=== PATIENT | female | born 1995 | race Caucasian/White ===

== ENCOUNTER 2020-05-02 13:48 | Outpatient (REF) | payer SELFPAY ==
--- NOTE | 2020-05-02 13:00 | PAPFT_PTH ---
PATIENT: TIN GODFREY LOC: [facility] U#:[id number] AGE/SX: 25/F ROOM: RE05/02/[address]: COLLINS Saldana : 1995 BED: DIS: 05/02/2020 SPEC #: [id number] RECD: 05/02/20 17:55 STATUS: TERRELL REKarson #: [id number] KRISTAL: 05/02/20 13:[address]: Carmel Perla DEPT: [facility] Cytology RECD BY: Carline Kincaid ENTERED: 05/02/20 17:55 SP TYPE: PAPFT OTHR DR: Yadiel Pastrana MD Tissues: 1 - CX/ENDOCX FOR PAP SMEARS Procedures: PAP THIN PREP/[facility] Screening Comments: [id number] (MICHIE)
[2020-05-08 12:21] LABS: Chlamydia Result Negative (Negative); GC Result Negative (Negative)
== END 2020-05-02 14:08 ==
LOC: LBN 13:48
PROVIDERS: PCP Pediatrics; Visit Provider Nurse Practitioner Family
DX: Z11.3 Encounter for screening for infections with a predominantly sexual mode of transmission (principal); Z12.4 Encounter for screening for malignant neoplasm of cervix; R87.612 Low grade squamous intraepithelial lesion on cytologic smear of cervix (LGSIL)
CPT/HCPCS: 87491; 87591; 88142

== ENCOUNTER 2023-05-31 13:29 | Outpatient (REF) | payer SELFPAY ==
--- NOTE | 2023-05-31 13:45 | PAPFT_PTH ---
PATIENT: TIN GOFDREY LOC: [facility] U#:[id number] AGE/SX: 28/F ROOM: RE05/31/[address]: Olivia Sevilla MD : 1995 BED: DIS: 05/31/2023 SPEC #: [id number] RECD: 05/31/23 17:08 STATUS: TERRELL REKarson #: [id number] KRISTAL: 05/31/23 13:[address]: Olivia Sevilla DEPT: [facility] Cytology RECD BY: Carline Kincaid ENTERED: 05/31/23 17:08 SP TYPE: PAPFT EMILY DR: Leelee Local Tissues: 1 - CX/ENDOCX FOR PAP SMEARS Procedures: PAP THIN PREP/[facility] Screening HPV DNA PROBE Comments: (CHLAMYDIA/GC)
[2023-06-01 15:07] LABS: Chlamydia Result Negative (Negative); GC Result Negative (Negative)
== END 2023-05-31 13:30 | disposition home or self-care (01) ==
LOC: LBN 13:29
PROVIDERS: Visit Provider Obstetrics & Gynecology
DX: Z12.4 Encounter for screening for malignant neoplasm of cervix (principal); Z11.3 Encounter for screening for infections with a predominantly sexual mode of transmission
CPT/HCPCS: 87491; 87591; 88142; 87624

== ENCOUNTER 2024-07-25 15:51 | Outpatient (REF) | payer BC, SELFPAY ==
--- NOTE | 2024-07-25 15:50 | PAPFT_PTH ---
PATIENT: TIN GODFREY LOC: [facility] U#:[id number] AGE/SX: 29/F ROOM: RE07/25/[address]: Olivia Sevilla MD : 1995 BED: DIS: 07/25/2024 SPEC #: [id number] RECD: 07/25/24 17:42 STATUS: TERRELL REKarson #: [id number] KRISTAL: 07/25/24 15:[address]: Olivia Sevilla DEPT: [facility] Cytology RECD BY: Carline Kincaid ENTERED: 07/25/24 17:42 SP TYPE: PAPFT OT DR: Unknown,Unknown Tissues: 1 - CX/ENDOCX FOR PAP SMEARS Procedures: PAP THIN PREP/[facility] Screening Comments: [id number] (CHLAMYDIA/GC)
[2024-07-26 12:26] LABS: Chlamydia Result Negative (Negative); GC Result Negative (Negative)
== END 2024-07-25 15:52 | disposition home or self-care (01) ==
LOC: LBN 15:51
PROVIDERS: Visit Provider Obstetrics & Gynecology
DX: B37.31 Acute candidiasis of vulva and vagina (principal)
CPT/HCPCS: 87491; 87591; 88142; 87480; 87510; 87660